=== PATIENT | male | born 1945 | race Caucasian/White ===

== ENCOUNTER 2020-11-25 09:54 | Day surgery (SDC) | payer MEDICARE, OTHER ==
[~2020-11-25] VITALS: Ht 189.2 cm; Wt 96.6 kg
[2020-11-25] VITALS (13 sets, daily range): BP systolic 107–144; BP diastolic 57–89; PULSE 54–71; TEMP 97–98.2
[~2020-11-25 09:54] MED LIST: ADVIL200 MG PO; ASPIRIN E.C. 8181 MG PO; BENADRYL25 M2 PO; CENTRUM SILVER1 CTB PO; COUMADIN 1MG1 MG/TAB PO; COUMADIN4 MG PO; COZAAR100 MG PO; CRANBERRY1 POW; ECHINACEA400 MG PO; EFFIENT10 MG PO; FLOMAX 0.40.4 MG/CAP PO; GLUCOPHAGE500 MG/TAB PO; LASIX 40MG TABL40 MG PO; LIPITOR 80MG80 MG PO; LOPID 600M600 MG/TAB PO; LOPRESSOR100 MG PO; MAGNESIUM500 MG PO; MUCINEX D1 TER PO; NATURAL E400 IU PO; NORVASC 5MG5 MG/TAB PO; PHARMASSURE SA160 MG PO; PRIL40 PO; PROSCAR 5MG5 MG PO; SINGULAIR 110 MG/TAB PO; TOPROL XL100 MG PO; TYLENOL 500MG500 MG PO; VITAMIN D32000 I1 PO; VITAMINC1000TA PO
[2020-11-25] MEDS ORDERED: TYLENOL PM EXTR1 TA1 PO (11:21)
[2020-11-25 11:23] LABS: INR 1.2 (0.8-3.0)
[2020-11-25] MEDS ORDERED: INSULIN HUMA100 U/ML SQ (11:39)
[2020-11-25] MEDS ORDERED: VITAMIN C500 MG PO (11:40)
[2020-11-25] MEDS ORDERED: AMARYL 2MG T2 MG/TAB PO (11:40)
--- NOTE | 2020-11-25 22:57 | NUR ---
pt has been great. Vvs.pt reated his pain 0/10. Will continue to monitor.
[2020-11-26 04:15] VITALS: BP 106/68; PULSE 65; TEMP 98.2
[2020-11-26 08:08] VITALS: BP 110/58; PULSE 69; TEMP 98.3
--- NOTE | 2020-11-26 08:20 | NUR ---
Patient resting in bed. Did well with breakfast. Reports following a strict diabetic diet. Home meds reviewed. Patient refuses proscar. Corrections made to medication list with list patient provided. No am toprol given. due to dose given last evening. patient hoping to get boone removed today
--- NOTE | 2020-11-26 10:04 | NUR ---
SW met with the patient to discuss discharge plan. The patient lives in [place] with his , Amy (ph#[phone]). He reports independence with ADLs and has a cane, walker, and wheelchair available if needed. The patient's PCP is Dr. Pawan Solorzano and he receives his medications from [facility] in [place] and [facility] in [place]. He reports no difficulties obtaining his meds. The patient's DPOA-HC is in EMR and it designates his . The patient plans to return home with his upon discharge. No additional needs at this time. *Discharge plan: home with *
--- NOTE | 2020-11-26 10:35 | NUR ---
Initial visit; Patient indisposed, [employer] left card informing patient of the availability of spiritual care at [place]/[facility].
--- NOTE | 2020-11-26 11:00 | NUR ---
Rivers dc. bladder primed. Patient tolerated well. 6 bottle routine started per orders.
[2020-11-26 12:19] VITALS: BP 147/76; PULSE 84; TEMP 98.2
--- NOTE | 2020-11-26 13:25 | NUR ---
Patient continues to complete 6 bottle routine. He reports burning & frequency. Azo per orders. rounded. Will continue to monitor.
--- NOTE | 2020-11-26 14:43 | NUR ---
Patient continues to have frequency and urgency, but reports pyridum did help. Urine remains bloody, darker in color now. No clots. He has concerns of constipation, but no interest in any medication at this time.
[2020-11-26] MEDS ORDERED: PYRIDIUM 100MG100 MG PO (16:28)
[2020-11-26 16:35] VITALS: BP 132/87; PULSE 60; TEMP 98.1
--- NOTE | 2020-11-26 17:35 | NUR ---
Dr. Lyle rounded & discharge orders obtained. Reviewed discharge education with patient and will review again with patient . Patient tolerated dinner. Patient ready to get home. We reviewed med list-coumadin & asa to be held
--- NOTE | 2020-11-26 17:53 | NUR ---
6 bottle routine completed. Patient ambulated out with all belogings. Questions answered for his . She will be taking him home
== END 2020-11-26 17:54 | disposition home or self-care (01) ==
LOC: SDCO 09:54 → SURG 17:06 → SDCO 11-26 17:54
PROVIDERS: Registered Nurse
DX: N40.1 Benign prostatic hyperplasia with lower urinary tract symptoms (principal); N21.0 Calculus in bladder; R33.8 Other retention of urine; R39.12 Poor urinary stream; N52.9 Male erectile dysfunction, unspecified; N20.0 Calculus of kidney; N28.1 Cyst of kidney, acquired; K80.20 Calculus of gallbladder without cholecystitis without obstruction; I48.91 Unspecified atrial fibrillation; I25.10 Atherosclerotic heart disease of native coronary artery without angina pectoris; E11.9 Type 2 diabetes mellitus without complications; K57.30 Diverticulosis of large intestine without perforation or abscess without bleeding; K21.9 Gastro-esophageal reflux disease without esophagitis; E78.5 Hyperlipidemia, unspecified; I10 Essential (primary) hypertension; M19.90 Unspecified osteoarthritis, unspecified site; J44.9 Chronic obstructive pulmonary disease, unspecified; Z79.899 Other long term (current) drug therapy; Z79.01 Long term (current) use of anticoagulants; Z87.891 Personal history of nicotine dependence; Z79.82 Long term (current) use of aspirin; Z85.828 Personal history of other malignant neoplasm of skin; Z79.4 Long term (current) use of insulin
CPT/HCPCS: OP; J0690; J3010; J7030